=== PATIENT | female | born 1935 | race Caucasian/White ===

== ENCOUNTER 2021-06-03 12:46 | Emergency (ER) | payer MEDICARE ==
--- NOTE | 2021-06-03 13:29 | EDM.PDOC ---
ED HPI GENERAL MEDICAL PROBLEM - General Chief Complaint: Back Pain or Injury Stated Complaint: HURT BACK Time Seen by Provider: 06/03/21 13:15 Source of Information: Reports: Patient History Limitations: Reports: No Limitations - History of Present Illness INITIAL COMMENTS - FREE TEXT/NARRATIVE: Patient comes emergency department today with complaints of back pain. This patient on Saturday had a quite busy day and carried about 6 to 8 boxes of heavy house material to the local [facility] center. Since that time she has developed some mid upper left lateral back pain that comes and goes with movement. She had no trauma falls or injury other than the busy day of moving boxes. She has no other symptoms of chest pain shortness of breath or difficulty breathing. No cough or congestion. No weakness dizziness lightheadedness. No paresthesias of her lower extremities. No change in the functionality of her upper or lower extremities. No loss of bowel or bladder. The pain is primarily worse when she gets up in the morning. It has improved minimally with ibuprofen but she is still struggling with it. Upper Back Pain Score (Numeric/FACES): 8 - Related Data Allergies Allergy/AdvReac Type Severity Reaction Status Date / Time Unable to Assess Allergy Unverified 06/03/21 13:14 Home Meds: Home Meds Aspirin 81 mg PO DAILY 06/03/21 [History] Cyclobenzaprine [Flexeril] 10 mg PO BID PRN #8 tab 06/03/21 [Rx] Latanoprost/Pf [Latanoprost 0.005% Eye Drop] 7.5 ml OP ASDIRECTED 06/03/21 [History] Past Medical History HEENT History: Reports: Cataract Social & Family History - Tobacco Use Tobacco Use Status *Q: Unknown Ever Used Tobacco ED ROS GENERAL - Review of Systems Review Of Systems: Comprehensive ROS is negative, except as noted in HPI. ED EXAM, UPPER BACK/NECK PAIN - Physical Exam Exam: See Below Exam Limited By: No Limitations General Appearance: Alert, WD/WN, Thin (frail appearing 85 year old. ) Head Exam: Atraumatic Neck Exam: Non-Tender Cardiovascular/Respiratory: Regular Rate, Rhythm, No M/R/G, Normal Peripheral Pulses, Normal Breath Sounds, No Respiratory Distress GI/Abdominal: Normal Bowel Sounds, Soft Back Exam: Normal Inspection, Muscle Spasm (Left upper mid back. No signs of rash lesions or bruising or other signs of trauma. ). No: Paraspinal Tenderness, Vertebral Tenderness Extremities: Normal Inspection, Normal Range of Motion, Non-Tender, No Pedal Edema, Normal Capillary Refill Neurologic: cooler servicer II-XII nml As Tested, Normal Mood/Affect, Oriented x 3 DTR: 2+: Patella (R), Patella (L), Achilles (R), Achilles (L) Psychiatric: Normal Affect, Normal Mood Skin Exam: Normal Color, Warm/Dry Course - Vital Signs Last Recorded V/S: Last Vital Signs Temp 98.9 F 06/03/21 12:55 Pulse 94 06/03/21 12:55 Resp 18 06/03/21 12:55 BP 141/78 H 06/03/21 12:55 Pulse Ox 98 06/03/21 12:55 - Orders/Labs/Meds Meds: Medications Discontinued Medications Generic Name Dose Route Start Last Admin Trade Name Freq PRN Reason Stop Dose Admin Cyclobenzaprine HCl 1 packet 06/03/21 13:23 06/03/21 13:34 Take Home: Cyclobenzaprine 10 Mg Tab, 4 Tab Pack PO 06/03/21 13:24 1 packet ONETIME ONE Administration - Re-Assessments/Exams Free Text/Narrative Re-Assessment/Exam: As she had no trauma or injury I do not feel that x-rays are warranted. With the history and presentation this is clearly musculoskeletal primarily muscular in nature with her probably over physical exertion that she did on Saturday. I would also like her to try Tylenol instead of ibuprofen with her age. Heat or ice to the area. We will also try small doses of Flexeril. If she is not improving see physical therapy. She is comfortable with this plan and her questions are answered. Departure - Departure Time of Disposition: 13:26 Disposition: Home, Self-Care 01 Clinical Impression: Musculoskeletal back pain - Discharge Information Prescriptions: Cyclobenzaprine [Flexeril] 10 mg PO BID PRN #8 tab PRN Reason: Pain Instructions: Muscle Strain, [id number], Pain Medicine Instructions, [id number] Forms: ED Department Discharge Additional Instructions: Tylenol as needed for pain. Heat or ice to the area which ever works best for you. Flexeril, 1 tablet twice daily as needed for pain. Caution sedation. Take home pack sent home from the ED and RX sent to [facility] pharmacy. Return to the ED if new or worsening symptoms. Follow up with PCP in the next 4-6 days if not improving sooner if worse. Sepsis Event Note (ED) - Focused Exam Vital Signs: Vital Signs Temp Pulse Resp BP Pulse Ox 06/03/21 12:55 98.9 F 94 18 141/78 H 98
[2021-06-03] MEDS: Take Home: Cyclobenzaprine 10 MG Tab, 4 Tab Pack PO ONE (13:34)
== END 2021-06-03 13:36 | disposition home or self-care (01) ==
LOC: VM.ED 12:46
DX: M54.6 Pain in thoracic spine (principal)
CPT/HCPCS: 99283; A9270-GY